=== PATIENT | male | born 1990 | race Caucasian/White ===

== ENCOUNTER → 2020-10-14 01:37 | Outpatient (CLI) | payer BC, SELFPAY ==
[2020-10-14 17:24] LABS: SARS-CoV-2 RNA PCR Negative
== END ==
PROVIDERS: PCP Internal Medicine; Visit Provider Internal Medicine Gastroenterology
DX: Z01.812 Encounter for preprocedural laboratory examination (principal); Z20.822 Contact with and (suspected) exposure to COVID-19
CPT/HCPCS: C9803; U0003; U0005

== ENCOUNTER 2020-10-17 00:13 | Day surgery (SDC) | payer BC, SELFPAY ==
[2020-10-02 15:01] VITALS: BMI 24.4
[2020-10-17 07:22] VITALS: BP 121/83; PULSE 85; RESP 14; TEMP 36; O2SAT 99; BMI 24.3
[2020-10-17] MEDS: LACTATED RINGERS 1,000 ML 150 ML IV CONT (07:31)
--- NOTE | 2020-10-17 08:40 | WPDANESEPPF ---
Anes - Initial Pre Proc Eval Procedure: Operation Date: 10/17/20 08:45 Proposed Procedures p Esophagogastroduodenoscopy & Colonoscopy - Justino Stovall MD Date/Time: 10/17/20 08:40 Surgeon: Justino Stovall MD Pre Op Diagnosis: weight loss, GERD Patient Data Age: 30 Gender: M Height: 6 ft 1 in Weight: 83.8 kg Last Vital Signs Temp 96.8 F L 10/17/20 07:22 Pulse 85 10/17/20 07:22 Resp 14 10/17/20 07:22 BP 121/83 10/17/20 07:22 Pulse Ox 99 10/17/20 07:22 Allergies Allergy/AdvReac Type Severity Reaction Status Date / Time No Known Allergies Allergy Verified 10/17/20 07:20 Home Medications Medication Instructions Recorded Confirmed Type omeprazole magnesium 20 mg 20 mg PO DAILY #30 cap 07/18/20 10/02/20 Rx capsule,delayed release peppermint oil [IBgard] 90 mg PO TID 10/02/20 10/02/20 History dicyclomine 10 mg capsule 20 mg PO TID 30 Days #180 cap 10/15/20 Rx Patient hx anesthesia problems: none Family hx anesthesia problems: none PMFSH Past Medical History Medical History (Updated 09/22/20 @ 11:29 by SHANELLE Kang) Anxiety Back pain Cannabis use disorder, moderate, dependence Gastroesophageal reflux disease IBS (irritable bowel syndrome) Weight loss Family History Family History Mother History of cholecystectomy Cataract extraction status Father Actinic keratosis Grandparent Hypertension Diabetes mellitus Elevated triglycerides with high cholesterol Dementia Grandparent , Age 65 from Pulmonary Fibrosis No problems noted. Grandparent Diabetes mellitus Breast cancer Heart disease Hyperlipidemia Grandparent Diabetes mellitus Hyperlipidemia Hypertension Thyroid cancer Social History Social History (Updated 10/02/20 @ 15:08 by Tiffany Ojeda RN) Smoking status: Never smoker Alcohol intake: former Substance use: current Substance use type: marijuana Other substance usage details: DAILY Living arrangements: with family Gender identity (if verbalized by the patient): Male Spiritual care concerns: No Anes - Eval Final PreProcedure Day of Procedure 10/17/20 08:40 Patient weight: normal Heart: regular rate and rhythm Lungs: clear to auscultation Airway: Mallampati scale class II Neurological: alert and oriented Last oral intake: >/= 8 hours ASA classification: II Emergent: no Anesthetic plan: proceed Anesthesia type and monitoring: general GIVS and standard monitoring Informed Consent: The patient's anesthetic plan and its attendant risks and benefits were discussed with the patient/family/POA. Questions were solicited and answers provided to the satisfaction of the patient/family/POA.
--- NOTE | 2020-10-17 08:46 | WPDHPUPDATE1 ---
History and Physical Update Update Date/Time: 10/17/20 08:46 History and Physical has been reviewed, including an updated exam of the patient. There are NO changes in the patient's condition. Risks, benefits, and alternatives have been discussed and questions answered. Patient agrees to proceed with procedure.
[2020-10-17 09:17] VITALS: BP 102/64; PULSE 71; RESP 19; O2SAT 98
[2020-10-17 09:27] VITALS: BP 97/51; PULSE 79; RESP 24; O2SAT 100
[2020-10-17 09:37] VITALS: BP 85/60; PULSE 73; RESP 19; O2SAT 100
== END 2020-10-17 09:46 | disposition home or self-care (01) ==
PROVIDERS: PCP Internal Medicine; Visit Provider Internal Medicine Gastroenterology
PROC: 0DJ08ZZ Inspection of Upper Intestinal Tract, Via Natural or Artificial Opening Endoscopic (ICD-10-PCS; CPT 43235; principal; 2020-10-17 08:45)
DX: R63.4 Abnormal weight loss (principal); K64.8 Other hemorrhoids; K21.9 Gastro-esophageal reflux disease without esophagitis; K58.9 Irritable bowel syndrome, unspecified; F41.9 Anxiety disorder, unspecified; F12.90 Cannabis use, unspecified, uncomplicated
CPT/HCPCS: 45378; 43239; 88305; C9803; J2001; J2704; J7120; U0003; U0005

== ENCOUNTER 2022-09-06 21:35 | Emergency (ER) | payer BC, SELFPAY ==
--- NOTE | ~2022-09-06 | XR_ITS ---
EXAM: XR knee LT 3V DATE: 09/06/2022 22:23 HISTORY: pain status post kickball injury . COMPARISON: None available. FINDINGS: Normal mineralization. No fracture or dislocation. No lytic or blastic lesion. Joint space s are maintained. No erosion or periosteal change. Soft tissues within normal limits. IMPRESSION: No acute osseous finding in the left knee. Reviewed, dictated and finalized at location K.
--- NOTE | ~2022-09-06 | XR_ITS ---
EXAM: XR ankle LT min 3V, XR foot LT min 3V DATE: 09/06/2022 22:25 HISTORY: FELT POP IN LEFT CALF, WHILE PLAYING KICKBALL PAIN . COMPARISON: None available. FINDINGS: Normal mineralization. No fracture or dislocation. No lytic or blastic lesion. Joint space s are maintained. No erosion or periosteal change. Indistinct Achilles tendon shadow. Considerable garcia bcutaneous edema/induration overlying the posterior soft tissues and the fat pad. IMPRESSION: No acute osseous finding in the left ankle or foot. Possible Achilles tendon tear. Consid er nonemergent but timely MRI of the Achilles and orthopedic referral. Reviewed, dictated and finalized at location K. IMPRESSION: No acute osseous finding in the left ankle or foot. Possible Achill es tendon tear. Consider nonemergent but timely MRI of the Achilles and orthope dic referral.
[2022-09-06 21:40] VITALS: BP 138/65; PULSE 89; RESP 20; TEMP 37.3; O2SAT 97
[2022-09-06] MEDS: HYDROcodone/acetaminophen (*CRX) 5-325 MG TABLET 1 TAB PO (23:20)
[2022-09-06 23:22] VITALS: BP 132/72; PULSE 73; RESP 15; TEMP 36.7; O2SAT 98
--- NOTE | 2022-09-06 23:24 | ED.LOWEXIN ---
HPI - Extremity Injury (Lower) General Chief Complaint: Extremity Injury, Lower Stated Complaint: L ankle pain Time Seen by Provider: 09/06/22 23:08 History of Present Illness HPI Narrative: 32-year-old male here for evaluation of right ankle pain after a kickball accident today. Patient states that he was running in his usual state of health when he suddenly felt a pop in his calf. Since then he has had difficulty bearing weight. Denies other injuries in the fall. He has not taken any medicine for the pain. He has had no difficulty moving the foot. Related Data Home Medications Medication Instructions Recorded Confirmed peppermint oil 90 mg 90 mg PO TID 10/02/20 10/02/20 capsule,delayed,extended release (IBgard) Allergies Allergy/AdvReac Type Severity Reaction Status Date / Time No Known Allergies Allergy Verified 09/06/22 21:47 Review of Systems Review of Systems: Gen.: Denies fevers or chills Eyes: Denies eye pain or visual change ENT: Denies congestion Respiratory: Denies shortness of breath or cough CV: Denies chest pain or palpitations GI: Denies abdominal pain nausea, emesis or diarrhea denies burning, urgency, frequency or hematuria Musculoskeletal: Reports ankle pain Neuro: Denies numbness, tingling, weakness or focal weakness Skin: Denies rash Except as documented, all other systems reviewed and negative [facility] Past Medical History Medical History Anxiety Back pain Cannabis use disorder, moderate, dependence Gastroesophageal reflux disease IBS (irritable bowel syndrome) Weight loss Family History Family History Mother History of cholecystectomy Cataract extraction status Father Actinic keratosis Grandparent Hypertension Diabetes mellitus Elevated triglycerides with high cholesterol Dementia Grandparent , Age 65 from Pulmonary Fibrosis No problems noted. Grandparent Diabetes mellitus Breast cancer Heart disease Hyperlipidemia Grandparent Diabetes mellitus Hyperlipidemia Hypertension Thyroid cancer Social History Social History (Updated 10/02/20 @ 15:08 by Tiffany Ojeda RN) Smoking status: Never smoker Alcohol intake: former Substance use: current Substance use type: marijuana Other substance usage details: DAILY Living arrangements: with family Occupation/Education: occupation Gender identity (if verbalized by the patient): Male Spiritual care concerns: No Exam Narrative: Gen: Alert, oriented, no acute distress Eyes: EOMI, no icterus Pulm: Respirations even and unlabored, symmetric thorax expansion, no audible stridor or visible cyanosis CV: Regular rate per telemetry GI: No distension, no voluntary/involuntary guarding Neuro: AOx4, moves all extremities without apparent difficulty or weakness, follows commands MSK: Amato test positive on the left. No palpable Achilles tendon on the left. No bony tenderness to palpation. Difficulty with plantar flexion. Compartments are soft. Skin: No jaundice, no visible bruising, rashes, lesions or wounds on exposed skin Psych: Normal mood/affect, insight/judgement good, adequate fund of knowledge, recent/remote memory intact Course Vital Signs Vital signs: Vital Signs Temperature 99.2 F 09/06/22 21:40 Pulse Rate 89 09/06/22 21:40 Respiratory Rate 20 09/06/22 21:40 Blood Pressure 138/65 09/06/22 21:40 Pulse Oximetry 97 09/06/22 21:40 Oxygen Delivery Room Air 09/06/22 21:40 Temperature 98.1 F 09/06/22 23:22 Pulse Rate 73 09/06/22 23:22 Respiratory Rate 15 09/06/22 23:22 Blood Pressure 132/72 09/06/22 23:22 Pulse Oximetry 98 09/06/22 23:22 Oxygen Delivery Room Air 09/06/22 21:40 MDM - Extremity Injury (Lower) MDM Narrative Medical decision making narrative: 32-year-old male here f
== END 2022-09-07 01:18 | disposition home or self-care (01) ==
PROVIDERS: Emergency Provider Physician Assistant
DX: S86.012A Strain of left Achilles tendon, initial encounter (principal); F41.9 Anxiety disorder, unspecified; K21.9 Gastro-esophageal reflux disease without esophagitis; X50.0XXA Overexertion from strenuous movement or load, initial encounter
CPT/HCPCS: 29515; 73562; 73610; 73630; 99284; A9270

== ENCOUNTER 2022-09-17 15:38 | Outpatient (CLI) | payer BC, SELFPAY ==
--- NOTE | ~2022-09-17 | MR_ITS ---
EXAMINATION: MR ankle LT wo con DATE: 09/17/2022 16:24 INDICATION: Left Achilles tendon strain TECHNIQUE: Magnetic resonance imaging (MRI) of the left ankle was performed without intravenous contr ast. Sequences included sagittal, coronal, and axial proton-density weighted fast spin echo without a nd with fat saturation. COMPARISON: None. FINDINGS: Medial ankle ligaments: There is thickening and increased signal on the distal aspect of the tibia spring component of the garcia perficial deltoid ligament without surrounding edema consistent with mild scarring related to chronic sprain. The deep deltoid ligament as well as the spring ligament are normal. Lateral ankle ligaments: The anterior and posterior inferior tibiofibular ligaments are normal. The anterior talofibular, calc aneofibular and posterior talofibular ligaments are normal. Tendons: Severe Achilles tendinosis with full-thickness tear occurring approximately 6 cm proximal to the calc aneal insertion. There is a small fluid collection situated within the tear defect. Peroneus longus t endon is normal. There is approximately 1.5 cm proximal retraction with separation of the ragged prox imal and distal tear margins. The severe tendinosis extends at least 6.5 cm proximal to the proximal tear margin. The tibialis anterior and extensor hallucis longus and extensor digitorum longus tendon s are normal. The tibialis posterior, flexor digitorum longus and flexor hallucis longus tendons are normal. Plantar fascia: Plantar aponeurosis is normal. Bones/other: Bone alignment is normal. There is nonspecific marrow edema of indeterminate etiology along the anter ior margin of the lateral process of the talus. The more anterior sinus Tarsi appears normal. Otherwi se normal marrow signal. No fracture or pathologic marrow replacing process. Fluid: Physiologic amount fluid in the joint spaces. Small fluid collection at the site of the Achilles tend on tear most likely posttraumatic hematoma. IMPRESSION: 1. Severe Achilles tendinosis with full-thickness tear approximately 6 cm proximal to the calcaneal i nsertion with 1.5 cm proximal retraction. 2. Mild tendinopathy and longitudinal split tearing of the peroneus brevis tendon. 3. Nonspecific marrow edema without acute fracture along the anterior margin of the lateral process o f the calcaneus of indeterminate etiology which could represent a bone contusion in the setting of tr auma. Reviewed, dictated and finalized at location A. IMPRESSION: 1. Severe Achilles tendinosis with full-thickness tear approximately 6 cm proxi mal to the calcaneal insertion with 1.5 cm proximal retraction. 2. Mild tendinopathy and longitudinal split tearing of the peroneus brevis tend on. 3. Nonspecific marrow edema without acute fracture along the anterior margin of the lateral process of the calcaneus of indeterminate etiology which could rep resent a bone contusion in the setting of trauma.
== END 2022-09-17 15:39 | disposition home or self-care (01) ==
PROVIDERS: PCP Hospitalist; Visit Provider Orthopaedic Surgery
DX: S86.019A Strain of unspecified Achilles tendon, initial encounter (principal); X58.XXXA Exposure to other specified factors, initial encounter; M76.62 Achilles tendinitis, left leg
CPT/HCPCS: 73721